=== PATIENT | female | born 2000 | race Caucasian/White ===

== ENCOUNTER 2019-07-28 22:05 | Emergency (ER) | payer MEDICAID ==
[~2019-07-28] VITALS: Ht 170.2 cm; Wt 75.3 kg
[2019-07-28 22:08] VITALS: Ht 170.2 cm; Wt 75.3 kg
[2019-07-29 01:26] LABS: BASOPHIL % 0.3 % (0-2); PLATELET COUNT 214 x10^3mcL (130-400); RED CELL DISTRIBUTION WIDTH 13.4 % (11.5-14.5)
[2019-07-29 01:33] LABS: CALCIUM 9.3 mg/dL (8.5-10.1); CARBON DIOXIDE 25.5 mmol/L (21-32); CHLORIDE SERUM 106 mmol/L (98-107); CREATININE SERUM 0.7 mg/dL (0.6-1.0); GFR1 > 60 mL/min; GLUCOSE SERUM 91 mg/dL (74-106); POTASSIUM SERUM 3.6 mmol/L (3.5-5.1); SODIUM SERUM 141 mmol/L (136-145)
[2019-07-29 01:37] LABS: ALBUMIN 3.9 g/dL (3.4-5.0); ALKALINE PHOSPHATASE 58 U/L (46-116); ALT/SGPT 24 U/L (14-59); AST/SGOT 14 U/L (15-37); BILIRUBIN TOTAL 0.3 mg/dL (0.20-1.00); CHOLESTEROL 135 mg/dL (<200); CHOLESTEROL/HDL RATIO 3.5; HDL CHOLESTEROL 39 mg/dL (40-60); TRIGLYCERIDES 74 mg/dL (<150)
[2019-07-29 02:15] VITALS: BP 99/62
== END 2019-07-29 02:15 | disposition home or self-care (01) ==
LOC: ED 22:05
PROVIDERS: Specialist
DX: R10.31 Right lower quadrant pain (principal); R19.7 Diarrhea, unspecified; R63.0 Anorexia
CPT/HCPCS: J1885; J7030